=== PATIENT | male | born 1995 | race Caucasian/White ===

== ENCOUNTER 2022-03-31 20:39 | Emergency (ER) | payer SELFPAY ==
[~2022-03-31] VITALS: Ht 177.8 cm; Wt 69.4 kg
[2022-03-31] MEDS ORDERED: LORA-259 PO (21:04)
[2022-03-31] MEDS ORDERED: HYDR-4209 PO (21:04)
--- NOTE | 2022-03-31 21:22 | NUR ---
Police at bedside speakign to patient
--- NOTE | 2022-03-31 21:42 | NUR ---
Officer Florencio gresham number: [id number]
[2022-03-31 21:43] VITALS: BP 140/67
--- NOTE | 2022-03-31 21:43 | NUR ---
Patient discharged to home in stable condition. Written and verbal after care instructions given. Patient verbalizes understanding of instructions. Stressed follow up or return to ER for worsening s/s.
== END 2022-03-31 21:44 | disposition home or self-care (01) ==
LOC: ER 20:39
DX: S00.33XA Contusion of nose, initial encounter (principal); V42.5XXA Car driver injured in collision with two- or three-wheeled motor vehicle in traffic accident, initial encounter; Y92.410 Unspecified street and highway as the place of occurrence of the external cause; F41.9 Anxiety disorder, unspecified; F90.9 Attention-deficit hyperactivity disorder, unspecified type
CPT/HCPCS: A4663